=== PATIENT | male | born 1985 | race Caucasian/White ===

== ENCOUNTER 2019-03-20 17:46 | Emergency (ER) | payer OTHER ==
[~2019-03-20] VITALS: Ht 172.7 cm; Wt 81.2 kg
[2019-03-20 18:29] LABS: URINE BILIRUBIN NEGATIVE (Negative); URINE BLOOD NEGATIVE (Negative); URINE CLARITY CLEAR; URINE COLOR YELLOW; URINE GLUCOSE-RANDOM* NEGATIVE (Negative); URINE KETONES NEGATIVE (Negative); URINE LEUKOCYTES NEGATIVE (Negative); URINE NITRITE NEGATIVE (Negative); URINE PROTEIN (DIPSTICK) NEGATIVE (Negative); URINE SPECIFIC GRAVITY <= 1.005 (1.005-1.035); URINE UROBILINOGEN 0.2 E.U./dl (0.2-1.0)
[2019-03-20 18:58] LABS: ABSOLUTE NEUTROPHILS 3.5 thou/uL (1.4-8.2); BASOPHILS 0.6 % (0.0-2.0); HEMATOCRIT 44.6 % (42.0-52.0); HEMOGLOBIN 15.5 gm/dL (14.0-18.0); LYMPHOCYTES 38.7 % (24.0-44.0); MCH 34.3 pg (26.0-34.0); MCHC 34.7 g/dL (28.0-37.0); MCV 98.9 fL (80.0-100.0); MONOCYTES 6.5 % (1.0-8.0); PLATELET COUNT 204 thou/uL (150-400); POLYS 51.2 % (36.0-66.0); RBC 4.51 mil/uL (4.50-6.00); RDW 12.7 % (10.5-14.5); WBC 6.8 thou/uL (4.0-11.0)
[2019-03-20] MEDS ORDERED: ALPRAZOLAM ER2 MG PO (19:00)
[2019-03-20] MEDS ORDERED: CELEXA40 MG PO (19:00)
[2019-03-20] MEDS ORDERED: LAMICTAL100 MG PO (19:00)
[2019-03-20] MEDS ORDERED: INDERAL 20 MG T20 M1 PO (19:01)
[2019-03-20] MEDS ORDERED: XANAX1 MG PO ×2 (19:01→19:03)
[2019-03-20] MEDS ORDERED: RESTORIL15 MG PO (19:02)
[2019-03-20 19:07] LABS: CALCIUM 8.9 mg/dL (8.5-10.1); CREATININE 0.8 mg/dL (0.7-1.3); POTASSIUM 5.6 mmol/L (3.5-5.1)
[2019-03-20 19:12] LABS: ALBUMIN 3.5 g/dL (3.4-5.0); TOTAL BILIRUBIN 0.6 mg/dL (<0.1-1.0)
[2019-03-20] MEDS ORDERED: AUGMENTIN 875-1 EACH PO (20:23)
[2019-03-20] MEDS ORDERED: ZOFRAN ODT4 MG PO (20:23)
[2019-03-20 21:07] VITALS: BP 125/90
== END 2019-03-20 21:15 | disposition home or self-care (01) ==
LOC: ER 17:46
PROVIDERS: Physician Assistant
DX: K57.32 Diverticulitis of large intestine without perforation or abscess without bleeding (principal); I10 Essential (primary) hypertension; Z88.1 Allergy status to other antibiotic agents; Z79.899 Other long term (current) drug therapy